=== PATIENT | female | born 1995 | race Caucasian/White ===

== ENCOUNTER 2023-02-15 19:15 | Emergency (ER) | payer OTHER | END 2023-02-15 20:15 | disposition home or self-care (01) | LOC: NAV ERS 19:15 | DX: R06.4 Hyperventilation (principal); F17.210 Nicotine dependence, cigarettes, uncomplicated | CPT/HCPCS: 99284 ==

== ENCOUNTER 2023-02-26 14:42 | Emergency (ER) | payer OTHER ==
[2023-02-26] MEDS ORDERED: Cyclobenzaprine 10 MG TAB ONE (15:22)
[2023-02-26] MEDS ORDERED: Sodium Chloride 0.9% 1,000 ML ONE (15:22)
[2023-02-26 15:40] LABS: Bilirubin Negative (Negative); Blood, Urine Negative (Negative); Clarity Clear (Clear); Glucose, Urine (Dipstick) Negative (Negative); Ketone, Urine Negative (Negative); Leukocyte Negative (Negative); Nitrite Negative (Negative); Protein, Urine (Dipstick) 30 mg/dL (Neg-Trace); Specific Gravity, Urine 1.015 (1.005-1.030); Urobilinogen 0.2 mg/dL (Less than 2)
[2023-02-26 15:45] LABS: pH, Urine Greater/Equal 9.0 (5.0-9.0)
[2023-02-26 15:51] LABS: Pregnancy Test - Urine (BHCG) Negative (Negative); Pregu Control Background? CLEAR/WHITE (CLR/WHITE); Pregu Control Bar Appear? YES (CONTROL BAR); RBC/HPF None Seen HPF (0-3); Specific Gravity 1.015 (1.002-1.036); WBC/HPF 0-3 HPF (0-3)
[2023-02-26 15:52] LABS: Bacteria/HPF None Seen HPF (None Seen)
[2023-02-26 15:57] LABS: Hemoglobin 10.6 g/dL (12.0-16.0); Mean Corpuscular HGB CONC 30.6 g/dL (32.0-36.0); Mean Corpuscular Hemoglobin 23.1 pg (27.0-31.0); Mean Corpuscular Volume 75.5 fl (78.0-98.0); Mean Platelet Volume 6.3 fL (7.4-10.4); Platelet Count 400 10x3/uL (130-400); RBC Distribution Width 14.6 % (11.5-14.5); White Blood Cell (WBC) Count 12.5 10x3/uL (4.8-10.8)
[2023-02-26 15:58] LABS: MDiff Complete? YES; Manual Diff?? YES
[2023-02-26 15:59] LABS: Alcohol Less than 10 mg/dL (Less than 10); CRP (Inflammatory) Less than 0.50 mg/dL (= or < 0.5); Magnesium 1.4 mg/dL (1.6-2.6)
[2023-02-26 16:00] LABS: Band 3 % (5-11); Eosinophils 1 % (0-10); Lymphocytes 21 % (21-51); Monocytes 7 % (0-10); Neutrophil 68 % (42-75)
[2023-02-26 16:01] LABS: Anisocytosis SLIGHT = 6-15 cells (100X) (0-5/hpf); Microcytosis SLIGHT = 6-15 cells (100X) (0-5/hpf); Platelet Morphology Comment Appears Adequate
[2023-02-26 16:02] LABS: ALT (SGPT) 14 U/L (8-55); AST (SGOT) 18 U/L (5-34); Albumin 4.7 g/dL (3.5-5.0); Alkaline Phosphatase 52 U/L (40-110); Anion Gap 18 mmol/L (10-20); BUN (Urea Nitrogen) 9 mg/dL (7.0-18.7); Bilirubin, Total 0.4 mg/dL (0.2-1.2); Calc. Creatinine Clearance 0 mL/min (70-130); Calcium 9.6 mg/dL (7.8-10.44); Carbon Dioxide 22 mmol/L (22-29); Chloride 104 mmol/L (98-107); Estimated GFR 102; Globulin 3.4 g/dL (2.4-3.5); Glucose 100 mg/dL (70-105); Potassium 3.9 mmol/L (3.5-5.1); Protein, Total 8.1 g/dL (6.0-8.3); Sodium 140 mmol/L (136-145)
[2023-02-26 16:35] LABS: Amphetamine Not Detected (NotDetected); Barbiturates Screen Not Detected (NotDetected); Benzodiazepine Screen Not Detected (NotDetected); Cocaine Metabolite Screen Not Detected (NotDetected); Methadone Not Detected (NotDetected); Methamphetamine Not Detected (NotDetected); Opiate Screen Not Detected (NotDetected); Oxycodone Screen Not Detected (NotDetected); Phencyclidine (PCP) Not Detected (NotDetected); THC/Cannabinoid Screen Detected (NotDetected); Tricyclic Screen Not Detected (NotDetected)
[2023-02-26] MEDS ORDERED: Magnesium 2 GM/50 ML BAG (IN WATER) ONE (16:45)
[2023-02-27 15:05] LABS: Reference Lab Name LABCORP
== END 2023-02-26 18:25 | disposition home or self-care (01) ==
LOC: NAV ERS 14:42
DX: E83.42 Hypomagnesemia (principal); D64.9 Anemia, unspecified; F17.210 Nicotine dependence, cigarettes, uncomplicated
CPT/HCPCS: 36415; 80053; 80306; 80307; 81003; 81015; 81025; 82570; 83735; 85025; 86140; 96361; 96365; J3475; J7050